=== PATIENT | female | born 1960 | race Caucasian/White ===

== ENCOUNTER → 2016-08-13 | Outpatient (CLI) | payer BC ==
[~2016-08-13] MED LIST: ASPEC325 PO; CHOL20009 PO; GADAVIST IV PRN; HYDR-5688 PO; MELA1TAB5 PO; MULT-506 PO
--- NOTE | 2016-08-14 10:40 | DIAGNOSTIC IMAGING REPORT ---
MRI OF THE RIGHT SHOULDER WITH AND WITHOUT CONTRAST CLINICAL HISTORY: Enlarging right anterior shoulder mass. COMPARISON STUDY: No previous studies for comparison. TECHNIQUE: Utilizing a 1.5 Jonna magnet, multiplanar, multiecho imaging of the shoulder was performed pre and postcontrast ministration. Injection of 6 cc of Gadavist IV was uneventful. FINDINGS: A marker was placed on skin at site of palpable abnormality. There is a corresponding 3.6 x 2.7 cm T1 hyperintense lesion which demonstrates fat saturation on the fat-saturated sequences. This is within the subcutaneous tissues overlying the deltoid muscle. This has a few thin septations with thin enhancement. No nodular enhancement is present. No additional masses are identified on this examination. Alignment of the right shoulder is anatomic. There is no full-thickness rotator cuff tear. There is mild tendinopathy of supraspinatus. There is mild arthritis of the right acromioclavicular joint. No labral tear is identified. No suspicious marrow replacement is present. IMPRESSION: 1. 3.6 x 2.7 cm fat containing subcutaneous lesion of the anterior right shoulder which overlies the deltoid muscle. This represents the palpable lesion. The MRI appearance is consistent with a lipoma. However, if progressive enlargement, surgical resection might be considered. No nodular enhancement. 2. No full-thickness cuff tear. Mild supraspinatus tendinopathy. 3. Mild arthritis of the right acromioclavicular joint. Electronically signed by: Khris Flores M.D. 08/14/2016 10:39 AM Dictated Date/Time: 08/13/2016 8:11 PM
== END | disposition home or self-care (01) ==
LOC: C.MRI 18:43
PROVIDERS: ATTEND Family Medicine
DX: R22.31 Localized swelling, mass and lump, right upper limb (principal)

== ENCOUNTER → 2016-09-03 | Outpatient (CLI) | payer BC ==
[~2016-09-03] MED LIST changes: -ASPEC325 PO; -GADAVIST IV PRN; -MELA1TAB5 PO
--- NOTE | 2016-09-03 14:34 | DIAGNOSTIC IMAGING REPORT ---
RIGHT SHOULDER MIN 2 VIEWS CLINICAL HISTORY: Right shoulder pain COMPARISON: None. DISCUSSION: No fractures or dislocations are visualized. There are no visible periarticular calcifications. There is a presumed humeral head bone island. IMPRESSION: 4 mm humeral head bone island. Otherwise unremarkable conventional radiographic evaluation of the right shoulder Electronically signed by: Solo Adorno M.D. 09/03/2016 2:32 PM Dictated Date/Time: 09/03/2016 2:32 PM
== END ==
LOC: C.RDSM 14:00
PROVIDERS: ATTEND Physician Assistant
DX: R52 Pain, unspecified (principal)

== ENCOUNTER → 2016-09-04 | Outpatient (CLI) | payer BC ==
--- NOTE | 2016-09-04 08:11 | DIAGNOSTIC IMAGING REPORT ---
CHEST 2 VIEWS ROUTINE HISTORY: Cough. COMPARISON: None. FINDINGS: The lungs are clear. Cardiac silhouette is normal in size. No pleural effusions. No pneumothorax. IMPRESSION: No acute process. Electronically signed by: Luis Felipe Pizano M.D. 09/04/2016 8:09 AM Dictated Date/Time: 09/04/2016 8:08 AM
== END | disposition home or self-care (01) ==
LOC: C.RAD 07:37
PROVIDERS: ATTEND Family Medicine
DX: J18.9 Pneumonia, unspecified organism (principal)

== ENCOUNTER → 2016-09-13 | Day surgery (SDC) | payer BC ==
[2016-08-30 09:03] VITALS: Ht 165.1 cm; Wt 63.6 kg
[~2016-09-13] VITALS: Ht 165.1 cm; Wt 63.6 kg
[~2016-09-13] MED LIST changes: +ATROPINE SULFATE 0.1 MG/ML 5ML SYR IV PRN; +BUPIVACAINE/EPINEPHRINE 0.5% MPF 1:200,000 30 ML VIAL ONE; +CEFAZOLIN 1000MG/55 ML D5W IV SCH; +DEXAMETHASONE SOD INJ 4 MG/ML VIAL IV PRN; +DEXAMETHASONE SOD INJ 4 MG/ML VIAL ONE; +EpHEDrine SULFATE INJ 50 MG/ML AMP IV PRN; +FENTANYL CITRATE INJ 50 MCG/1 ML 2 ML VIAL IV PRN; +FENTANYL CITRATE INJ 50 MCG/1 ML 2 ML VIAL ONE; +KETOROLAC TROMETHAMINE 30 MG/ML VIAL IV. PRN; +LABETALOL HCL IV 5 MG/ML 20ML IV PRN; +LACTATED RINGER'S 1000ML 1,000 ML IV SCH; +LIDOCAINE HCL 2% 2 ML VIAL (20MG/ML) ONE; +METOCLOPRAMIDE HCL INJ 5 MG/ML 2 ML VIAL IV PRN; +MIDAZOLAM HCL 1 MG/ML 2ML VIAL ONE; +MoRPHine SULFATE 10 MG/ML CARP/VIAL IV PRN; +ONDANSETRON INJ 2 MG/ML 2 ML VIAL IV PRN; +ONDANSETRON INJ 2 MG/ML 2 ML VIAL ONE; +OXYCODONE/ACETAMINOPHEN 5-325 TAB PO PRN; +PHENYLEPHRINE 100MCG/ML 5ML SYR IV PRN; +PROPOFOL IV EMULSION 10 MG/ML 20 ML VIAL IV ONE; +SODIUM CHLORIDE 0.9% 1000ML 1,000 ML IV SCH
--- NOTE | 2016-09-13 09:37 | History & Physical Bridge Note ---
H&P Re-Evaluation Bridge Note: I have examined the patient, reviewed the History & Physical and in the interval since the performance of the History & Physical I have noted the following changes of clinical significance: No changes noted
--- NOTE | 2016-09-13 10:34 | [facility] Post Operative Brief Note ---
Immediate Operative Summary Operative Date September 13, 2016. Pre-Operative Diagnosis Right Shoulder Lipoma Post-Operative Diagnosis Same Procedure(s) Performed Right Shoulder Lipoma Excisional Biopsy Surgeon Dr. Patton Distributor Publications Surgeon(s) Chloé Robles PA-C Estimated Blood Loss 5 ML Findings lipoma Specimens A. Right Shoulder Lipoma Drains o Anesthesia LMA Complication(s) None Disposition Recovery Room / PACU
--- NOTE | 2016-09-13 10:44 | Discharge Instructions-SurgCtr ---
Discharge Instructions Date of Service September 13, 2016. Visit Reason for Visit: Right Shoulder Lipoma Discharge Discharge Diagnosis / Problem: lipoma right shoulder Discharge Goals Goal(s): Decrease discomfort, Improve function, Increase independence Activity Recommendations Activity Limitations: per Instructions/Follow-up section Anesthesia . Post Anesthesia Instructions: If you have had General Anesthesia or IV Sedation: * Do not drive today. * Resume driving when surgeon permits. * Do not make important decisions or sign legal documents today. * Call surgeon for: 1. Temperature elevations greater than 101 degrees F. 2. Uncontrollable pain. 3. Excessive bleeding. 4. Persistent nausea and vomiting. 5. Medication intolerance (nausea, vomiting or rash). * For nausea and vomiting use only clear liquids such as: tea, soda, bouillon until nausea subsides, then gradually increase diet as tolerated. * If you have any concerns or questions, call your surgeon's office. If physician is unavailable and it is an emergency, call 911 or go to the nearest emergency room. . Instructions / Follow-Up Instructions / Follow-Up DIET: * Resume previous diet. MEDICATIONS: * Please take your prescriptions as instructed at your pre-op appointment and/ or see medication discharge instructions listed above. * If concerns develop, call your physician's office at . SPECIAL CARE INSTRUCTIONS: * Ice/Elevate as needed for pain/swelling. * You may be comfortable with head of bed elevated. * Wear sling right arm for comfort. * Keep dressing clean, dry, intact. * You may remove dressings right arm on Saturday, then shower and redress incision as needed. No dressings needed if dry. Pat incision dry out of shower , do not scrub or soak wound. * You may do shoulder, elbow, wrist and finger range of motion to prevent stiffness. * Advance activities as tolerated. * Your surgical extremity may be discolored due to prepping agents used on the skin. A bluish-green tint is a normal variant and should not cause alarm. Call your doctor at [phone] if: * Temperature above 101 degrees * Pain not relieved by pain medicine ordered * There is increased drainage or redness from any incision * You have any unanswered questions, problems or concerns. FOLLOW UP VISIT: * If not already scheduled, please call the office at to schedule a follow-up appointment. Diet Recommendations Home Diet: no limitations, resume previous diet Procedures Procedures Performed: Right Shoulder Lipoma Excisional Biopsy Pending Studies Studies pending at discharge: no Medical Emergencies . Who to Call and When: Medical Emergencies: If at any time you feel your situation is an emergency, please call 911 immediately. . Non-Emergent Contact Non-Emergency issues call your: Surgeon Call Non-Emergent contact if: temperature is above 101, your pain is not controlled, your pain is concerning you, you have any medication questions . . "Provider Documentation" section prepared by Lenora Robles. . [place] Drug Monitoring Program Search Results: patient reviewed within database, no issues identified
--- NOTE | 2016-09-13 10:48 | [facility] Operative Report ---
Operative Report Operative Date September 13, 2016. Pre-Operative Diagnosis Right Shoulder Lipoma Post-Operative Diagnosis Right shoulder lipoma Procedure(s) Performed Excisional biopsy right shoulder lipoma Surgeon Dr. Patton Cable Television Technician Surgeon(s) Lenora Robles PA-C Estimated Blood Loss 5 ML Findings Right shoulder lipoma Specimens A. Right Shoulder Lipoma Drains o Anesthesia LMA Complication(s) None Disposition Recovery Room / PACU (stable) Indications Patient presented to the office complaining of mass to right shoulder for many years, progressively enlarging. X-ray/MRI obtained and confirmed lipoma. Surgical intervention recommended. She agreed to proceed, risks/complications discussed, informed consent obtained. Description of Procedure Patient was taken to the operating room, placed under general anesthesia, given IV Ancef for surgical prophylaxis. Time out performed, prepped and draped in routine sterile fashion. I was present the entire case, please see Dr. Patton's operative report for further detail. Patient was awakened and taken to the recovery room in stable condition. I attest to the content of the Intraoperative Record and any orders documented therein. Any exceptions are noted below.
[2016-09-13 11:21] VITALS: TEMP 36.4
--- NOTE | 2016-09-13 11:32 | OPERATIVE REPORT ---
DATE OF OPERATION: 09/13/2016 PREOPERATIVE DIAGNOSIS: Right shoulder lipoma. POSTOPERATIVE DIAGNOSIS: Same. PROCEDURE PERFORMED: Excisional biopsy right shoulder lipoma. SURGEON: Dr. Patton. BREAKER TABLE WORKER: Lenora Robles PA-C. No resident or fellow available. ANESTHESIA: Laryngeal mask. INDICATIONS FOR PROCEDURE: The patient is a 56-year-old female with a history of lipoma on her right shoulder. It has clinically enlarged. MRI shows a well-encapsulated homogeneous appearing subcutaneous lesion consistent with a benign lipoma. Treatment options, risks and benefits were discussed and she elected to proceed with operative intervention. She did report a history of pneumonia recently, this was approximately 2 weeks ago. She is finished with her antibiotics for over a week. She has not had any fever or cough. This was discussed with the anesthesiologist preoperatively Dr. Grimes. PROCEDURE IN DETAIL: Informed consent was obtained. The patient identified as Malu Grimes. She identified the operative site as the right shoulder. I marked it with my initials. A preop surgical time out was performed. A preop dose of IV antibiotics was given. She was taken to the operating room, positioned supine on the OR table. A laryngeal mask anesthetic was administered. She was positioned beach chair with the tenant body positioner. The neck was held in neutral alignment. The torso was secured to the table. The knees were flexed and the ankles were padded. She had a 5 x 6 cm lesion in the subcutaneous tissues. It was soft and pliable and it was located at the interval between the anterior and middle heads of the deltoid in the subcutaneous tissues immediately distal to the acromion. DVT prophylaxis is not indicated. Routine prep and drape was performed. I made an incision that was somewhat in line with the skin creases but also slightly longitudinal so that it is potentially extensile. This was centered over the lesion and was 3 cm in depth. Blunt dissection and electrocautery were utilized down to well capsulated lipoma. This was then dissected out from the surrounding normal tissue with blunt dissection and scissors. The lesion appeared to have a fibrous attachment to the acromial margin and this was resected. The lesion measured 3 x 4 cm and appeared to be uniform lipoma. I then explored around the remainder of the wound and in the subcutaneous tissues. There was no other fatty lumps consistent with lipoma. The lesion was subcutaneous and was on the surface of the muscle but did not go into the muscle. It may have been below the fascia of the muscle as blunt dissection of the lesion revealed unencapsulated muscle fibers. The area at the acromion where the more fibrous attachment was present was resected with scissors and electrocautery was performed as necessary. The wound was copiously irrigated with sterile saline. There was no significant bleeding. It was then closed with 2-0 Vicryl, subcutaneous stitches and a 4-0 Monocryl running subcuticular stitch. A soft sterile dressing was applied along with an arm sling. The patient was then awakened from anesthesia without difficulty, taken to the recovery room in stable condition. There were no complications. The resected lipoma was sent for specimen. This appeared to be normal fatty tissue. Counts were correct at the end of the case. Blood loss was minimal. At the conclusion of the operation there was no one available to speak to. She will be able to do active range of motion of her shoulder and wean out of the sling as her symptoms allow and gradually resume ADLs. At the conclusion of the operation, local anesthetic was injected into the skin and subcutaneous tissues for a field block. I attest to the content of the Intraoperative Record and any orders documented therein. Any exceptio ns are noted below.
--- NOTE | 2016-09-13 11:41 | Anesthesia Progress Nt - [facility] ---
Anesthesia Post Op Note Date & Time September 13, 2016 at 11:41 Vital Signs Pain Intensity: 0 Vital Signs Past 12 Hours Date Time Temp Pulse Resp B/P Pulse Ox O2 Delivery O2 Flow Rate FiO2 09/13/16 11:21 36.4 63 16 107/62 100 Room Air 09/13/16 11:11 69 21 100 09/13/16 11:11 68 21 09/13/16 11:10 120/73 09/13/16 11:10 36.5 68 16 120/73 98 Room Air 09/13/16 11:06 68 20 100 09/13/16 11:06 68 20 09/13/16 11:05 120/71 09/13/16 11:01 68 16 09/13/16 11:01 68 16 100 09/13/16 11:00 119/71 09/13/16 10:56 65 15 09/13/16 10:56 65 15 100 09/13/16 10:55 66 19 114/67 09/13/16 10:55 65 19 09/13/16 10:50 66 18 114/70 100 09/13/16 10:50 66 18 09/13/16 10:45 64 16 09/13/16 10:45 64 16 116/69 100 09/13/16 10:40 76 15 09/13/16 10:40 77 15 113/72 99 09/13/16 10:40 36.7 72 16 113/72 100 Diffusion Mask 6 09/13/16 08:26 36.7 71 18 102/76 97 Room Air Notes Mental Status: alert / awake / arousable, participated in evaluation Pt Amnestic to Procedure: Yes Nausea / Vomiting: adequately controlled Pain: adequately controlled Airway Patency, RR, SpO2: stable & adequate BP & HR: stable & adequate Hydration State: stable & adequate Anesthetic Complications: no major complications apparent
[2016-09-13 11:49] VITALS: BP 123/78; PULSE 65; O2SAT 99
== END | disposition home or self-care (01) ==
LOC: X.SURG 08:16
PROVIDERS: ATTEND Physical Medicine & Rehabilitation Sports Medicine
DX: D17.39 Benign lipomatous neoplasm of skin and subcutaneous tissue of other sites (principal)

== ENCOUNTER → 2017-02-22 | Outpatient (CLI) | payer BC ==
[~2017-02-22] MED LIST changes: -ATROPINE SULFATE 0.1 MG/ML 5ML SYR IV PRN; -BUPIVACAINE/EPINEPHRINE 0.5% MPF 1:200,000 30 ML VIAL ONE; -CEFAZOLIN 1000MG/55 ML D5W IV SCH; -DEXAMETHASONE SOD INJ 4 MG/ML VIAL IV PRN; -DEXAMETHASONE SOD INJ 4 MG/ML VIAL ONE; -EpHEDrine SULFATE INJ 50 MG/ML AMP IV PRN; -FENTANYL CITRATE INJ 50 MCG/1 ML 2 ML VIAL IV PRN; -FENTANYL CITRATE INJ 50 MCG/1 ML 2 ML VIAL ONE; -HYDR-5688 PO; -KETOROLAC TROMETHAMINE 30 MG/ML VIAL IV. PRN; -LABETALOL HCL IV 5 MG/ML 20ML IV PRN; -LACTATED RINGER'S 1000ML 1,000 ML IV SCH; -LIDOCAINE HCL 2% 2 ML VIAL (20MG/ML) ONE; -METOCLOPRAMIDE HCL INJ 5 MG/ML 2 ML VIAL IV PRN; -MIDAZOLAM HCL 1 MG/ML 2ML VIAL ONE; -MoRPHine SULFATE 10 MG/ML CARP/VIAL IV PRN; -ONDANSETRON INJ 2 MG/ML 2 ML VIAL IV PRN; -ONDANSETRON INJ 2 MG/ML 2 ML VIAL ONE; -OXYCODONE/ACETAMINOPHEN 5-325 TAB PO PRN; -PHENYLEPHRINE 100MCG/ML 5ML SYR IV PRN; -PROPOFOL IV EMULSION 10 MG/ML 20 ML VIAL IV ONE; -SODIUM CHLORIDE 0.9% 1000ML 1,000 ML IV SCH
--- NOTE | 2017-02-22 14:13 | MAMMOGRAPHY REPORT ---
BILATERAL DIGITAL SCREENING MAMMOGRAM TOMOSYNTHESIS WITH CAD: 02/22/2017 CLINICAL HISTORY: Routine screening. Patient has no complaints. TECHNIQUE: Breast tomosynthesis in addition to standard 2D mammography was performed. Current study was also evaluated with a Computer Aided Detection (CAD) system. COMPARISON: Comparison is made to exams dated: 10/14/2014 mammogram, 07/17/2013 mammogram, 01/15/2013 ultr asound biopsy, 12/29/2012 mammogram, 12/29/2012 ultrasound, and 12/23/2012 mammogram - [facility]. BREAST COMPOSITION: The tissue of both breasts is extremely dense, which lowers the sensitivity of m ammography. FINDINGS: No suspicious masses, calcifications, or areas of architectural distortion are noted in ei ther breast. There has been no significant interval change compared to prior exams. Bilateral benign -appearing calcifications are not significantly changed. A biopsy marker clip is again noted in the right lower inner quadrant. IMPRESSION: ACR BI-RADS CATEGORY 2: BENIGN There is no mammographic evidence of malignancy. A 1 year screening mammogram is recommended. The pa tient will receive written notification of the results. Approximately 10% of breast cancers are not detected with mammography. A negative mammographic report should not delay biopsy if a clinically suggestive mass is present. Mary Wilkes M.D. /:02/22/2017 12:29:05 Test Engine Mechanic: Jackie TAVERA(R)(M), [facility] letter sent: Normal 1/2 BI-RADS Code: ACR BI-RADS Category 2: Benign
== END | disposition home or self-care (01) ==
LOC: C.MAMM 10:59
PROVIDERS: ATTEND Nurse Practitioner Family
DX: Z12.31 Encounter for screening mammogram for malignant neoplasm of breast (principal)